=== PATIENT | male | born 1980 | race Caucasian/White ===

== ENCOUNTER 2017-03-09 12:16 | Emergency (ER) ==
[2017-03-09 12:19] VITALS: BP 113/68; TEMP 96.3; BMI 22.0
--- NOTE | 2017-03-09 12:22 | ED.PDOC ---
General ED Provider: Dr. KATARINA BEE Chief Complaint: Hand Laceration Stated Complaint: Pateint is a 36 year old male who comes to the ER with laceration to the left hand on the 3rd and 4th finger. Has some Difficulty with full flextion from the dip join on the 4th finger with numbness distally Time Seen by Physician: 12:30 Mode of Arrival: Walk-In Information Source: Patient Exam Limitations: No limitations Nursing and Triage Documentation Reviewed and Agree: Yes Review of Systems - Review Of Systems Constitutional: Reports: No symptoms Eyes: Reports: No symptoms Ears, Nose, Mouth, Throat: Reports: No symptoms Respiratory: Reports: No symptoms Cardiac: Reports: No symptoms GI: Reports: No symptoms : Reports: No symptoms Musculoskeletal: Reports: Joint pain Skin: Reports: Other (laceration left 3rd and 4th finger ) Neurological: Reports: No symptoms Endocrine: Reports: No symptoms Hematologic/Lymphatic: Reports: No symptoms All Other Systems: Reviewed and Negative Past Medical History - Past Medical History Previously Healthy: Yes Endocrine: Reports: DM 2 Cardiovascular: Reports: None Respiratory: Reports: None Hematological: Reports: None Gastrointestinal: Reports: None Genitourinary: Reports: None Neuro/Psych: Reports: None Musculoskeletal: Reports: None Cancer: Reports: None - Surgical History General Surgical History: Reports: None - Family History Family History: Reports: None - Social History Smoking Status: Current every day smoker, Heavy tobacco smoker Hx Substance Use: No Alcohol Screening: None - Immunizations Tetanus Shot up to Date: Yes Physical Exam - Physical Exam Appearance: Thin Pain Distress: Moderate Respiratory: Airway patent Musculoskeletal: No edema, No calf tenderness, Limited ROM (3rd and 4th finger ) Skin: Warm, Dry Neurological: Alert, Oriented Psychiatric: Anxious Interpretation - Radiology Interpretation Radiology Interpretation By: ED Physician Radiology Results: Negative Exam Interpreted: Other (hand x ray ) Procedures - Laceration/Wound Repair left 4th finger Wound Description: Linear Wound Length (cm): 2 Wound Width: 0.2 Wound Explored: Clean Wound Irrigated: Yes Wound Prep: Saline, Hibiclens Anesthesia: Lidocaine Wound Debrided: not needed wournd was clean. Wound Margins: Flaps aligned Wound Repaired With: Sutures Suture Size and Type: 4.0 Ethlone Number of Sutures: 5 (simple interupped ) Layer Closure?: No Sling Applied?: Yes Progress: Tolerated procedure well Left 3rd finger Wound Description: Linear Wound Length (cm): 2 Wound Explored: Clean Wound Irrigated: Yes Wound Prep: Hibiclens Anesthesia: Lidocaine Wound Repaired With: Sutures Suture Size and Type: 5.0 Ethlone Number of Sutures: 9 (Running ) Physician Notification - Case Discussed Physician Notified: Dr. Sin Time of Notification: 16:05 (Call the clinic at [facility] to get seen by hand surgeon, Clean wound and close. ) Critical Care Note - Critical Care Note Total Time (mins): 0 Course - Course Orders, Labs, Meds: Orders Category Date Time Status ED SPLINT APPLICATION .ONCE EMERGENCY 03/09/17 15:05 Active Lidocaine HCl/Pf [Lidocaine HCl 1% Sdv] MEDS 03/09/17 14:22 Discontinued 5 ml SUBCUT ONCE STA HAND, LEFT 3 VIEWS Stat RADS 03/09/17 15:05 Completed Medications Discontinued Medications Generic Name Dose Route Start Last Admin Trade Name Freq PRN Reason Stop Dose Admin Lidocaine HCl 5 ml 03/09/17 14:22 03/09/17 14:42 Lidocaine Hcl 1% Sdv SUBCUT 03/09/17 14:23 5 ml ONCE STA Administration Vital Signs: Temp Pulse Resp BP Pulse Ox 03/09/17 12:16 96.3 F L 72 18 113/68 99 Departure - Departure Time of Disposition: 16:03 Disposition: HOME SELF-CARE Discharge Problem: Finger laceration Qualifiers: Encounter type: initial encounter Finger: ring finger Damage to nail status: with damage Foreign body presence: without foreign body Laterality: left Qualified Code(s): S61.315A - Laceration without foreign body of left ring finger with damage to nail, initial encounter Finger laceration involving tendon Qualifiers: Encounter type: initial encounter Qualified Code(s): S61.219A - Laceration without foreign body of unspecified finger without damage to nail, initial encounter Instructions: Finger Laceration (ED), Tendon Laceration (ED) Condition: Fair Pt referred to PMD for follow-up: Yes Additional Instructions: Follow up with Hand surgeon by calling [facility] either Dr. Edmondson or Dr. Angelo baron. Take Motrin as needed for pain Allergies/Adverse Reactions: Allergies No Known Allergies Allergy (Verified 03/09/17 12:19) Home Medications: Ambulatory Orders Insulin Glargine,Hum.rec.anlog [Lantus] 24 unit SUBCUT BEDTIME 03/09/17 Insulin Regular, Human [Novolin R Insulin] See Protocol SUBCUT TID 03/09/17 Disposition Discussed With: Patient, Family
[2017-03-09] MEDS ORDERED: LIDOCAINE HCL 1% SDV SUBCUT STA (14:22)
--- NOTE | 2017-03-09 16:09 | DI ---
EXAM: Three views left hand. CLINICAL INDICATION: Injury to the left third and fourth finger. FINDINGS: There are no fractures, dislocations or other significant bony abnormalities. There is a tiny metall ic foreign body projected along the radial aspect of the left second MCP joint. IMPRESSION: 1. No acute fractures. 2. Tiny metallic foreign body projected within the soft tissues along the radial aspect of the left MCP joint. 2. Otherwise negative radiographs of the left hand.
== END 2017-03-09 16:15 | disposition home or self-care (01) ==
LOC: ED 12:16
DX: S61.213A Laceration without foreign body of left middle finger without damage to nail, initial encounter (principal); S61.215A Laceration without foreign body of left ring finger without damage to nail, initial encounter; R20.0 Anesthesia of skin; F17.210 Nicotine dependence, cigarettes, uncomplicated
CPT/HCPCS: 99283